=== PATIENT | female | born 1985 | race Caucasian/White ===

== ENCOUNTER 2019-08-24 14:35 | Inpatient (IN) | payer BC ==
[~2019-08-24] VITALS: Ht 162.6 cm; Wt 65.9 kg
[2019-08-24 21:35] VITALS: BP 137/86
[2019-08-24] MEDS ORDERED: SERT100T PO (21:53)
[2019-08-24] MEDS ORDERED: LITH150C8 PO (21:53)
[2019-08-24] MEDS ORDERED: TRAZ-256 PO (21:53)
[2019-08-24] MEDS ORDERED: acetaminophen 325mg tablet PO PRN ×2 (23:00)
[2019-08-24] MEDS ORDERED: mag hydrox/Alum hydrox/simeth 30ml oral suspension PO PRN (23:00)
[2019-08-24] MEDS ORDERED: magnesium hydroxide 30ml (MOM) UD suspension PO PRN (23:00)
[2019-08-24] MEDS ORDERED: loperamide 2mg capsule PO PRN (23:00)
[2019-08-24] MEDS: traZODone 50mg tablet PO PRN (23:14)
--- NOTE | 2019-08-24 23:22 | NUR ---
ADMIT NOTE Legal hold:515 Client on involuntary status for DTS Why are they here: Pt was placed on 5150 after a suicide attempt. Pt took 15 Trazadone 50mg and Drank ETOH in attempt to end her life. Tox screen positive for ETOH, JEREMIAH .208. Assessment What has happened this shift: Pt arrived on unit at 2118 from [facility] ER accompanied by Landon DAMON and security. 2 person skin check completed. Skin is clear and no contraband found. Pt c/o WILKERSON "from crying" upon arrival. Pt states she drinks 4-6 Beers a day and drinks 3-5 days a week. Pt states she attends AA meetings and has a sponsor she likes and a substance abuse counselor "[facility]" at Dr. Leggett office. She states that she is frustrated because she can't stop drinking and feels Covid 19 is a large factor in why she has been drinking. She states she and were fighting because he is a road test examiner and his routine hasn't changed so she feels he doesn't understand what she is going through. She states all she can think about is what a disappointment she has been. She states the Etoh is an upper for her and then she crashes and has extreme anxiety the next day. She states her father has a history of "very dark thoughts and emotional ups and downs" before he started taking meds. Pt states she has "lots of nightmares, nightmares are the big one for me." Pt is tearful upon arrival and remains tearful during assessment, her affect brightened prior to going to sleep. Pt was given tylenol prn for WILKERSON and trazadone for sleep. S/I, H/I: Denies SI A/VH: Denies Sleep: Pt reports insomnia ADL's: independent Group attendance: no evening groups Were meds taken: yes Any med S/E none observed/reported Mental Status Exam Appearance: Pt arrived wearing personal clothing, she is clean, neat and well groomed Eye contact: good Behavior: cooperative, tearful Speech: Normal rate and rhythm, talkative Mood: tearful, anxious, depressed Affect: constricted Thought process: linear, Thought Content: Pt talking about missing home and what a "disappointment" she is. Cognition: a/ox4 Insight: fair Judgment:poor Interventions PRN's used: Tylenol Therapeutic interventions: 1:1 therapeutic assessment, medication administration/education/monitoring, therapeutic listening, encouraged sleep, Q 15 min safety checks. Restraints/seclusion/emergency medication: N/A Justification of Continued Inpatient Treatment: Patient DTS. Patient needs interruption of current crisis with medication adjustment in a safe therapeutic environment.
[2019-08-25 07:44] LABS: CHOL/HDL RATIO 2.4 (0.00-4.99); CHOLESTEROL 215 MG/DL (0-200); HDL CHOLESTEROL 89 MG/DL (35-60); HEMOGLOBIN A1C 4.9 % (4.5-6.2); LDL CHOLESTEROL 100 MG/DL (50-100); TRIGLYCERIDES 138 MG/DL (20-135)
[2019-08-25] MEDS: lithium carbonate 150mg capsule PO SCH ×2 (07:58→19:43)
[2019-08-25] MEDS: sertraline 50mg tablet PO SCH (07:59)
[2019-08-25 08:17] VITALS: BP 96/63
--- NOTE | 2019-08-25 14:03 | NUR ---
ADMIT NOTE Legal hold:5150 Client on involuntary status for DTS Why are they here: Pt was placed on 5150 after a suicide attempt. Pt took 15 Trazadone 50mg and Drank ETOH in attempt to end her life. Tox screen positive for ETOH, JEREMIAH .208. Assessment What has happened this shift: Pt has stayed in her room all day. Pt does not want to leave her room because she thinks everyone will stare at her since she is new here in the facility. Pt asked if she could bring in her yoga mat, face wipes, hard cover book and home clothing. Pt tearful when asking about these requests. S/I, H/I: Denies SI A/VH: Denies Sleep: Pt reports insomnia even though she feels extremely tired. ADL's: independent Group attendance: did not attend group Were meds taken: yes Any med S/E none observed/reported Mental Status Exam Appearance: She is clean, neat and well groomed Eye contact: good Behavior: cooperative, tearful Speech: Normal rate and rhythm, talkative Mood: tearful, anxious, depressed Affect: constricted Thought process: linear, Thought Content: Pt requesting if she can have home items brought in. No thoughts of SI at this time Cognition: a/ox4 Insight: fair Judgment:poor Interventions PRN's used: Tylenol Therapeutic interventions: 1:1 therapeutic assessment, medication administration/education/monitoring, therapeutic listening, encouraged sleep, Q 15 min safety checks. Restraints/seclusion/emergency medication: N/A Justification of Continued Inpatient Treatment: Patient DTS. Patient needs interruption of current crisis with medication adjustment in a safe therapeutic environment.
[2019-08-25 19:26] VITALS: BP 114/74
[2019-08-25] MEDS: hydrOXYzine 25 MG tablet PO PRN (20:05)
[2019-08-25] MEDS: traZODone 50mg tablet PO PRN (21:50)
--- NOTE | 2019-08-26 00:38 | NUR ---
Nursing progress note: Yokasta Legal hold:5150 ex: 08/27/19 @7090 Client on involuntary status for DTS Report received from JAVI Ventura with help of ALEM Why are they here: Pt was placed on 5150 after a suicide attempt. Pt took 15 Trazadone 50mg and Drank ETOH in attempt to end her life. Tox screen positive for ETOH, JEREMIAH .208. Pt states she feels everybody would be better off without her. Pt feels worthless and also expresses fear about her relationship and getting a divorce. PT has 2 other suicide attempts. She has history of bipolar which she takes medication for. Assessment What has happened this shift: Pt was in her room during shift change and states that she is doing good. Pt remains isolative to her room and spends a good amount reading. She states that she feels stressful and sad about the events that lead up to her current situation. Becomes very tearful after talking about this and states that she still feels pretty depressed. She rates her anxiety a 8/10 and states that the medication she has been taking for it has not really helped. Denies any S/I, H/I, A/VH. She states that she feels safe here. When asked if she has trouble sleeping, she states that she never sleeps and this is part of the reason why she feels stressful. Requested Atarax and this was given with good effect. Pt also states that she did not eat anything yesterday as she has been losing her appetite. From her chart it appears like she refused to eat her breakfast and lunch but ate 100% of her dinner. Pt requested Trazodone for sleep at around 2200. This was given with effectiveness as she falls asleep. S/I, H/I: Denies both A/VH: Denies both Sleep: Pt reports insomnia, she is currently sleeping ADL's: independent Group attendance: No groups during manufacturing supervisor 2nd shift Were meds taken: yes Any med S/E: None reported or observed Mental Status Exam Appearance: Appropriate, wearing personal clothing, neat. Eye contact: Good, direct Behavior: cooperative, tearful, isolative to her room Speech: Normal rate and rhythm Mood: "Sad, stressed." Pt appears depressed Affect: constricted Thought process: linear Thought Content: Pt talks about her feeling about how she ended up in this situation, medication, not being able to sleep. Cognition: a/ox4 Insight: fair Judgment:poor Interventions PRN's used: Atarax, Trazodone Therapeutic interventions: 1:1 therapeutic assessment, medication administration/education/monitoring, therapeutic listening, encouraged sleep, Q 15 min safety checks. Restraints/seclusion/emergency medication: N/A Justification of Continued Inpatient Treatment: Patient DTS. Patient needs interruption of current crisis with medication adjustment in a safe therapeutic environment.
[2019-08-26] MEDS: lithium carbonate 150mg capsule PO SCH (07:38)
[2019-08-26] MEDS: sertraline 50mg tablet PO SCH (07:38)
[2019-08-26 08:20] VITALS: BP 95/58
--- NOTE | 2019-08-26 15:01 | NUR ---
Nursing progress note: Legal hold: 515 ex: 08/27/19 @3678 Client on involuntary status for DTS Report received from JAVI Voss with help of SBAR Why are they here: Pt was placed on 5150 after a suicide attempt. Pt took 15 Trazadone 50mg and Drank ETOH in attempt to end her life. Tox screen positive for ETOH, JEREMIAH .208. Pt states she feels everybody would be better off without her. Pt feels worthless and also expresses fear about her relationship and getting a divorce. PT has 2 other suicide attempts. She has history of bipolar which she takes medication for. Assessment What has happened this shift: Received pt just waking up in bed. Pt agreeable to am assessment and took am medications. Pt states shes feeling better, less depressed and denies suicidal thoughts. Pt states, I just really miss my family Pt resistive to talking about plans for discharge, just wanting to be with her family. Pt out of bed for breakfast, then returned to bed. Pt checked on for 10am group and pt was teary eyed and refused group. Pt appears to be try to sell that shes ok, but this is incongruent with her presentation. Pt denies hallucinations. Pt remained in bed all shift other than meals. S/I, H/I: Denies both A/VH: Denies both Sleep: pt states she slept better last night ADL's: independent Group attendance: no, refused Were meds taken: yes Any med S/E: None reported or observed Mental Status Exam Appearance: Appropriate, wearing personal clothing, neat. Eye contact: Good, direct Behavior: cooperative, tearful, isolative to her room Speech: Normal rate and rhythm Mood: "Sad, stressed." Pt appears depressed Affect: constricted Thought process: linear Thought Content: Pt talks about her feeling about how she ended up in this situation, medication, not being able to sleep. Cognition: a/ox4 Insight: fair Judgment:poor Interventions PRN's used: Therapeutic interventions: 1:1 therapeutic assessment, medication administration/education/monitoring, therapeutic listening, encouraged sleep, Q 15 min safety checks. Restraints/seclusion/emergency medication: N/A Justification of Continued Inpatient Treatment: Patient DTS. Patient needs interruption of current crisis with medication adjustment in a safe therapeutic environment.
[2019-08-26 19:51] VITALS: BP 103/72
[2019-08-26] MEDS: traZODone 50mg tablet PO PRN ×2 (20:16→21:20)
[2019-08-26] MEDS: hydrOXYzine 25 MG tablet PO PRN (20:16)
[2019-08-26] MEDS ORDERED: lithium carbonate 300mg SR tablet (LithoBID) PO SCH (21:00)
--- NOTE | 2019-08-27 00:14 | NUR ---
Nursing progress note: Yokasta Legal hold:5150 ex: 08/27/19 @7708 Client on involuntary status for DTS Report received from JAVI Zacarias with help of ALEM Why are they here: Pt was placed on 5150 after a suicide attempt. Pt took 15 Trazadone 50mg and Drank ETOH in attempt to end her life. Tox screen positive for ETOH, JEREMIAH .208. Pt states she feels everybody would be better off without her. Pt feels worthless and also expresses fear about her relationship and getting a divorce. PT has 2 other suicide attempts. She has history of bipolar which she takes medication for. Assessment What has happened this shift: Pt was in her room reading during shift change. She states that she had a pretty good day but mainly slept. [place] very tired. Attended all her meals, but did not feel like attending group. Pt later on became teary and anxious after what appeared to be a phone call with her . Atarax was given at pts request. She rates her anxiety 8/10. This was given with effectiveness. She was much calmer later and admits to feeling better. She talks about discharge plans and feels like the best option would be for her to go in an impatient treatment. She is working with her and sister. Pt states that she feels overwhelmed at home having to do almost everything because she is basically a single mother since her works so much. Feels very stressed about this and states that this is when she turns to alcohol. States that the current situation with COVID19 only made things worse. She is able to state coping mechanisms she can use, such as exercise as she states that this is very important for her, and hopes that being in an in treatment facility will help her figure out how to avoid having feelings of self worthlessness. Pt received Trazodone and retired to sleep. S/I, H/I: Denies both A/VH: Denies both Sleep: Pt reports insomnia, she is currently sleeping ADL's: independent Group attendance: No groups during night worker Were meds taken: yes Any med S/E: None reported or observed Mental Status Exam Appearance: Appropriate, wearing personal clothing, neat. Eye contact: Good, direct Behavior: cooperative, tearful at times, isolative to her room Speech: Normal rate and rhythm Mood: "I feel better." pt does become teary and reports 8/10 anxiety Affect: Congruent with mood Thought process: linear Thought Content: Discharge plans, family, exercise, reading Cognition: a/ox4 Insight: Poor Judgment:poor Interventions PRN's used: Atarax, Trazodone Therapeutic interventions: 1:1 therapeutic assessment, medication administration/education/monitoring, therapeutic listening, encouraged sleep, Q 15 min safety checks. Restraints/seclusion/emergency medication: N/A Justification of Continued Inpatient Treatment: Patient DTS. Patient needs interruption of current crisis with medication adjustment in a safe therapeutic environment.
[2019-08-27 08:00] VITALS: BP 97/66
[2019-08-27] MEDS ORDERED: lithium carbonate 150mg capsule PO SCH (08:00)
[2019-08-27] MEDS: sertraline 50mg tablet PO SCH (08:27)
--- NOTE | 2019-08-27 08:36 | NUR ---
PSYCHOSOCIAL ASSESSMENT Yokasta is a 34 y/o female with 2 kids, ages 10 and 12. She was placed on 5150 by [facility] for [facility] to self after she overdosed on 15 trazadone while intoxicated. JEREMIAH was .208. Yokasta reported she recently relapsed after 28 days of sobriety and was hiding her alcohol use from her . He found out about it and was upset. She reported she was going to go stay at her parents house after the argument and took 15 trazadone in a suicide attempt. She reported she wanted to . This is her second attempt since May. In May she overdosed on medications with alcohol as well. She was hospitalized for a week at [facility] at that time. Yokasta reported her alcohol use increased 2 years ago. She reported a history of bipolar and that she drinks to help relieve stress and with her feelings of poor self worth. She reported she does not feel valuable. She expressed frustration with trying to work on herself while having the kids home from school due to Covid and having the majority of household responsibilities. She noted she feels like she needs to work on the underlying reasons why she drinks as opposed to just working on being sober. She reported her , Marvin, would like her to go to a 30 day mental health program after her hospitalization here. Discussed how this isn't just about her, it's also a family dynamic issue and that additional counseling with her may be helpful.Spoke to Yokasta's , Marvin (ph# [phone]), and suggested counseling, [facility] for himself, and that he call his insurance to see what program may be available for Yokasta. She currently receives medication management from [facility]. She also has a drug and alcohol counselor and another counselor there. She noted she is not very comfortable going there for counseling as she knows the staff. Software Engineer Advisor will provide her with counseling referrals that take her insurance. [facility] Addendum: 08/27/19 at 0839 by Mariann HOLBROOK Amended: Links added.
[2019-08-27] MEDS: hydrOXYzine 25 MG tablet PO PRN (08:37)
--- NOTE | 2019-08-27 10:00 | NUR ---
Group Therapy: Process Group This Clinicians goals for this process group were as follows: (1) Share psychoeducation about the importance of learning a process to control emotional self-regulation, which includes: awareness of emotional triggers, the ability to pause the escalation process by taking deep breaths, processing mental and emotional thoughts and sensations, followed by thinking about appropriate interventions that will successfully enable Patients to utilize interventions to reduce the intensity, frequency, and duration of their unwanted mental health symptoms. (2) Provide psychoeducation on the STOPP acronym, which stands for Stop, Take a breath, Observe the Situation, Put things into perspective, and Practice what works. (3) Encourage Client to process their personal experience of becoming emotionally escalated, while suggesting interventions that they could utilize to help them self-soothe. Patient identified experiencing the following levels of anxiety, depression, and anger/irritability while present in the group milieu. Anxiety: 10/14 Depression: 11/14 Anger irritability: 04/16 Patient presented as open and cooperative during the group process. When called upon by this Clinician, Patient freely discussed the thoughts and the bodily sensations that she experiences when her anxiety and depression symptoms escalate to a point where she begins to feel emotionally overwhelmed. Per this Clinician's impression, Patient's thought process and content appeared to fall within normal limits. Percy Barbour MA, [facility] Addendum: 08/27/19 at 1121 by Percy Barbour SS Amended: Links added.
--- NOTE | 2019-08-27 10:32 | NUR ---
Nursing Progress Note: Legal hold: 5150 Client on involuntary status for DTS Report received from nurse with use of SBAR: ENA Arguelles Why are they here: Pt was placed on 5150 after a suicide attempt. Pt took 15 Trazodone 50mg and Drank ETOH in attempt to end her life. Tox screen positive for ETOH, JEREMIAH .208. Pt states she feels everybody would be better off without her. Pt feels worthless and also expresses fear about her relationship and getting a divorce. PT has 2 other suicide attempts. She has history of bipolar which she takes medication for. Assessment What has happened this shift: Received pt. in bed sleeping at the beginning of the shift, she awoke for breakfast and then returned back to sleep. Pt. is compliant with AM medications, presents as cooperative, anxious, and isolative. 1:1 completed at bedside, pt. is intermittently tearful during the assessment. She denies S/I, however admits to ongoing depression, states, "At home everything falls on my shoulders. 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 also admitted to this underwriter solicitation director that she does not currently work, and does not get a lot of adult interaction with others, so this may possibly contribute to her depression. When questioned regarding anxiety, pt. reports that she feels like being on this unit is causing her to be more anxious and she would like to go to an inpatient facility for alcohol abuse rehabilitation. PRN Atrax administered with effectiveness. Pt. later up to shower and attend group. She continues to be withdrawn and interacts very minimally with others. Pt. reports the food provided to her here is causing stomach upset, put in a request for salads with meals, will continue to monitor. S/I, H/I: Denies A/VH: Denies, does not appear internally preoccupied Sleep: 7 hours reported ADL's: Independent Group attendance: Yes Were meds taken: Yes Any med S/E: None Mental Status Exam Appearance: Neat and appropriately dressed Eye contact: Good Behavior: Cooperative, anxious, and isolative Speech: WNL, soft Mood: Depressed and withdrawn Affect: Constricted Thought process: Linear Thought Content: Preoccupation with depression, anxiety, and desire to discharge Cognition: A&O X4 Insight: Fair Judgment: Fair Interventions PRN's used: Atrax Therapeutic interventions: Introduced self and established rapport, maintained a safe and therapeutic environment, ensured contract for safety, provided active listening and positive encouragement, and maintained Q 15min safety checks. Restraints/seclusion/emergency medication: N/A Justification of Continued Inpatient Treatment: Pt. requires interruption of current crisis, medication adjustments, and a safe and therapeutic environment.
[2019-08-27] MEDS ORDERED: LITH300C PO (14:49)
[2019-08-27] MEDS ORDERED: HYDR-3686 PO (14:49)
[2019-08-27] MEDS ORDERED: LIT300C PO (14:49)
[2019-08-27] MEDS ORDERED: TRAZ-251 PO (14:49)
[2019-08-27] MEDS ORDERED: SERT100T PO (14:49)
--- NOTE | 2019-08-27 15:48 | NUR ---
DISCHARGE PLANNING Coordinated admittance to [facility]. Yokasta is planning on discharging home today and her , Marvin, will transport her to the facility on Friday. Discussed safety planning with Marvin (re: guns are locked up, no alcohol in the home, and Yokasta's mom will spend the day with her on Friday while Marvin is at work). [facility]
--- NOTE | 2019-08-27 17:10 | NUR ---
Discharge Note: Pt. ambulated off the unit accompanied by this health science writer at approximately 1710. Belongings were previously inventoried by Camelia Jackson and returned to patient. Discharge instructions, follow-up, and medications were reviewed by this health science writer and pt. reported understanding. Pt. is being transported home by her . She is able to contract for safety. No need for smoking cessation, and pt. is being sent home with a hard-copy of her prescriptions.
== END 2019-08-27 17:16 | disposition home or self-care (01) | DRG 885 ==
LOC: ADULT MH 21:11
PROVIDERS: ADMIT Psychiatry & Neurology Psychiatry; ATTEND Psychiatry & Neurology Psychiatry
DX: F33.2 Major depressive disorder, recurrent severe without psychotic features (principal); T43.212A Poisoning by selective serotonin and norepinephrine reuptake inhibitors, intentional self-harm, initial encounter; F10.10 Alcohol abuse, uncomplicated; Z88.2 Allergy status to sulfonamides; Z79.899 Other long term (current) drug therapy; Y92.89 Other specified places as the place of occurrence of the external cause
CPT/HCPCS: 36415; 80061; 80178; 83036; 87081; 99285; Q0177